=== PATIENT | female | born 1990 | race Hispanic/Latino ===

== ENCOUNTER 2025-03-04 08:47 | Emergency (ER) | payer OTHER ==
[~2025-03-04] VITALS: Ht 162.6 cm; Wt 113.4 kg
[2025-03-04 09:02] VITALS: PULSE 87; RESP 18; TEMP 98.5; O2SAT 99
[2025-03-04] MEDS ORDERED: LEVOCETIRIZINE D5 MG PO (09:06)
== END 2025-03-04 09:45 | disposition home or self-care (01) ==
LOC: ER 09:19
DX: N76.4 Abscess of vulva (principal)
CPT/HCPCS: 99282